=== PATIENT | female | born 1970 | race American Indian/Alaskan Native ===

== ENCOUNTER 2020-08-11 08:21 | Outpatient (CLI) | payer BC ==
--- NOTE | 2020-08-11 09:51 | Ultrasound Report ---
ULTRASOUND-GUIDED CORE NEEDLE BIOPSY Right BREAST WITH CLIP PLACEMENT INDICATION: Complex cyst noted in the right breast on outside imaging. COMPARISON: [facility] We were unable to view the images a t this time. FINDINGS: Informed consent was obtained. The lesion within the right breast at the 11:00 position, 2 cm from th e nipple, was identified with ultrasound. This would appear to correspond with the finding described on outside report of a complex cystic lesion at the 12:00 position. No additional sonographic finding was seen in this region. The overlying skin was cleansed with chloro prep and local anesthesia was o btained with a 1% lidocaine solution. Under ultrasound guidance a 14-gauge spring loaded core biopsy needle was advanced to the lesion. A total of 4 core samples were obtained. A U-shaped biopsy marker was placed to rc the site of the biopsy. Specimen samples were placed in formalin and sent to patho logy for analysis. Patient tolerated the procedure well and no immediate complications were identified. A post procedure mammogram demonstrates accurate placement of the biopsy marker. IMPRESSION: Technically successful ultrasound guided core biopsy of right breast lesion at the 11:00 position wit h placement of a U-shaped biopsy marker. The lesion appeared to collapse completely after the first s ampling suggesting it is primarily composed of cystic elements. An addendum will be added to this report once pathology results are available. Signer Name: Ashu Pierre MD Signed: 08/11/2020 9:47 AM Workstation Name: [id number]
--- NOTE | 2020-08-11 10:06 | Mammography Report ---
RIGHT DIAGNOSTIC MAMMOGRAM INDICATION: Status post right breast biopsy. COMPARISON: No imaging is currently available, however outside report dated 06/15/2020 describes a le jorge in the right breast at the 12:00 position, 1 cm from the nipple. FINDINGS: Right breast CC and LM projection mammograms were obtained. These document the location of a U-shaped biopsy marker at the 11:00 to 12:00 position located at anterior to middle depth. This wou ld appear to correspond with the location described on outside imaging. No persistent residual mass i s identified. Of note, lesion appeared to collapse on ultrasound after sampling would suggest it is l ikely cystic in nature. IMPRESSION: Right breast mammographic images documenting location of U shaped biopsy marker status post ultrasoun d guided biopsy of right breast mass at the 11:00 position. BI-RADS Category 4: Suspicious for Malignancy. Signer Name: Ashu Pierre MD Signed: 08/11/2020 10:01 AM Workstation Name: [id number]
== END 2020-08-11 08:22 | disposition home or self-care (01) ==
LOC: SPVWC 08:21
PROVIDERS: ATTEND Surgery
DX: N63.11 Unspecified lump in the right breast, upper outer quadrant (principal); N60.02 Solitary cyst of left breast; N60.81 Other benign mammary dysplasias of right breast; R92.8 Other abnormal and inconclusive findings on diagnostic imaging of breast
CPT/HCPCS: 88305